=== PATIENT | female | born 1990 | race African-American/Black ===

== ENCOUNTER 2018-11-02 15:12 | Inpatient (IN) | payer OTHER ==
[~2018-11-02] VITALS: Ht 160 cm; Wt 108.0 kg
[2018-11-02] MEDS ORDERED: ONDANSETRON 4 MG INJ IV STA (15:39)
--- NOTE | 2018-11-02 15:44 | ERD ---
ER Documentation Chief Complaint Chief Complaint VOMITING X 1 DAY. HPI This is a 28-year-old female with a history of insulin-dependent diabetes mellitus. The patient is visiting [place] from [place]. She indicated that yesterday evening she changed her insulin pump and appear to be working. When she awoke this morning roughly 10 hours later she states she felt nauseous and had multiple episodes of nonbloody nonbilious emesis. However she denied any abdominal pain. She stated her insulin pump did not appear to be working. She changed the reservoir and it indicated it was blocked. Therefore she came to the emergency department as she was concerned about her glucose being too elevated. She denies a headache. She has no shortness of breath at rest or exertion. ROS All systems reviewed and are negative except as per history of present illness. Medications Home Meds Reported Medications Hydrochlorothiazide* (Hydrochlorothiazide*) 25 Mg Tab, 25 MG PO DAILY, #30 TAB 11/02/18 Lisinopril* (Lisinopril*) 40 Mg Tablet, 40 MG PO DAILY, #30 TAB 11/02/18 Insulin Lispro (Humalog) 100 Unit/1 Ml Cartridge, 0-20 UNIT SQ AC B, EA 11/02/18 Rosuvastatin Calcium* (Crestor*) 20 Mg Tablet, 20 MG PO QHS, #30 TAB 11/02/18 Allergies Allergies: Coded Allergies: No Known Allergy (Unverified , 11/02/18) Physical Exam Vitals Vital Signs Date Temp Pulse Resp B/P (MAP) Pulse Ox O2 O2 Flow FiO2 Time Delivery Rate 11/02/18 116 17 97 21 17:18 11/02/18 120 20 103/58 Room Air 17:00 (73) 11/02/18 98.1 119 18 119/57 99 15:14 (77) Physical Exam Constitutional:Well-developed. Well-nourished. HEENT:Normocephalic. Atraumatic.Pupils were equal round reactive to light. Dry mucous membranes.No tonsillar exudates. Neck: No nuchal rigidity. No lymphadenopathy. No posterior cervical spine tenderness or step-offs. Respiratory: Not using accessory muscles of respiration.Lungs were clear to auscultation bilaterally. No rhonchi. No rales. No wheezing. Cardiovascular: Regular rate regular rhythm.No murmurs. No rubs were appreciated.S1, S2 normal. Distal pulses are palpable 2+ bilaterally. GI: Abdomen was soft. Nontender. Non Distended. No pulsatile abdominal masses or bruits. No rebound. No guarding. Bowel sounds were present and normal. Muscle skeletal: Full range of motion of both the upper and lower extremities bilaterally.Normal muscle tone.No assymetrical calf tenderness or swelling. Skin: No petechia, no purpura. No lesions on the palms or the soles of the feet. No maculopapular rash. NEURO: Patient was alert, awake, orientated x3.No facial droop. Gait observed and normal with no ataxia.Speech had regular rate and rhythm. No focal neurological deficits. Result Diagram: 11/02/18 1542 11/02/18 1542 Results 24 hrs Laboratory Tests Test 11/02/18 15:17 11/02/18 15:42 11/02/18 17:17 11/02/18 18:00 Bedside Glucose > 595 mg/dL > 595 mg/dL White Blood Count 12.7 10^3/ul Red Blood Count 3.37 10^6/ul Hemoglobin 9.2 g/dl Hematocrit 29.7 % Mean Corpuscular 88.1 fl Volume Mean Corpuscular 27.3 pg Hemoglobin Mean Corpuscular 31.0 g/dl Hemoglobin Concen t Red Cell 13.2 % Distribution Width Platelet Count 422 10^3/UL Mean Platelet 10.9 fl Volume Immature 0.600 % Granulocytes % Neutrophils % 92.8 % Lymphocytes % 4.2 % Monocytes % 2.2 % Eosinophils % 0.0 % Basophils % 0.2 % Nucleated Red 0.0 /100WBC Blood Cells % Immature 0.070 10^3/ul Granulocytes # Neutrophils # 11.8 10^3/ul Lymphocytes # 0.5 10^3/ul Monocytes # 0.3 10^3/ul Eosinophils # 0.0 10^3/ul Basophils # 0.0 10^3/ul Nucleated Red 0.0 10^3/ul Blood Cells # Sodium Level 126 mmol/L Potassium Level 6.4 mmol/L Chloride Level 94 mmol/L Carbon Dioxide 12 mmol/L Level Anion Gap 20 Blood Urea 45 mg/dl Nitrogen Creatinine 2.57 mg/dl Est Glomerular 22 mL/min Filtrat Rate mL/min Glucose Level 873 mg/dl Hemoglobin A1c 8.9 % Calcium Level 8.9 mg/dl Phosphorus Level 6.9 mg/dl Magnesium Level 2.2 mg/dl Blood Gas Blood venous Specimen Source Arterial Blood 11/02/2018 3:50:19 Date Drawn PM Arterial Blood OTHER Gas Puncture Site Yohan Test N/A Venous Blood pH 7.234 Venous Blood pCO2 29.2 mmHG (Temp Corrected) Venous Blood pO2 42.6 mmHG (Temp Corrected) Venous Blood HCO3 12.1 mmol/L Venous Blood 68.3 mmHG Oxygen Saturation Venous Blood Base -14.1 mmol/L Excess Venous Blood 8.9 g/dl Total Hemoglobin Venous Blood 67.9 % Oxyhemoglobin Venous Blood 0.3 % Methemoglobin Blood Gas A-a O2 72.2 mmHg Differential Carboxyhemoglobin 0.3 % Blood Gas 37.0 C Temperature Blood Gas ROOM AIR Modality FiO2 21.0 % Blood Gas RBASA R.N. Critical Value Read Back Blood Gas MDA Notified Whom Blood Gas 11/02/2018 3:54:03 Notified Time PM Test 11/02/18 18:03 Bedside Glucose > 595 mg/dL Current Medications Medications Dose Sig/Lewis Start Time Status Last (Trade) Ordered Route PRN Stop Time Admin Dose Reason Admin Sodium 1,000 ml @ ONCE ONCE 11/02/18 DC 11/02/18 Chloride 1,000 mls/hr IV 16:00 11/02/18 15:49 16:59 Ondansetron 4 mg ONCE STAT 11/02/18 DC 11/02/18 HCl (Zofran IV 15:39 11/02/18 15:57 Inj) 15:41 650 mg ONCE ONCE 11/02/18 DC 11/02/18 Acetaminophen PO 16:30 11/02/18 16:59 (Tylenol 16:48 Tab) Potassium 1,000 ml @ Q0M IV 11/02/18 Chloride/Sodi 0 mls/hr 16:33 um Chloride Potassium 1,000 ml @ Q0M IV 11/02/18 Chloride/Dext 0 mls/hr 16:33 dragan/ Sod Cl Potassium 1,000 ml @ Q0M IV 11/02/18 Chloride/Sodi 0 mls/hr 16:33 um Chloride Potassium 1,000 ml @ Q0M IV 11/02/18 Chloride/Dext 0 mls/hr 16:33 dragan/ Sod Cl Sodium 1,000 ml @ Q0M IV 11/02/18 11/02/18 Chloride 0 mls/hr 16:33 17:14 1,000 ml @ Q0M IV 11/02/18 Dextrose/Sodi 0 mls/hr 16:33 um Chloride Insulin 100 ml @ ER DKA 11/02/18 11/02/18 Human 10.8 mls/hr PROTOCOL IV 17:00 17:36 Regular 100 unit/ Sodium Chloride HYPOGLYCEM 11/02/18 Miscellaneous HYPOGLYCEMIA PROTOCOL PRN 17:00 TREATMENT XX Information .HYPOGLYCEMIA (* PROTOCOL Miscellaneous Pharmacy Order) Dextrose 50 ml Q15M PRN 11/02/18 (D50w IV 17:00 Syringe) .DECREASED GLUCOSE Dextrose 25 ml Q15M PRN 11/02/18 (D50w IV 17:00 Syringe) .DECREASED GLUCOSE Sodium 30 gm ONCE STAT 11/02/18 DC Polystyrene PO 16:34 11/02/18 Sulfonate 16:49 (Kayexelate 15 Gm Kit (Powder+Sorbi kishan)) Albuterol 15 mg ONCE STAT 11/02/18 DC 11/02/18 (Proventil INH 16:34 11/02/18 17:15 0.5% (Neb)) 16:49 Sodium 50 ml ONCE STAT 11/02/18 DC 11/02/18 Bicarbonate IV 16:34 11/02/18 16:58 (Na Bicarb 16:49 8.4% Syg) Calcium 1,000 mg ONCE STAT 11/02/18 DC 11/02/18 Chloride IV 16:34 11/02/18 16:59 (Ca Chloride 16:49 10% Syg) Dextrose 50 ml Q15M PRN 11/02/18 UNV (D50w IV For BS 50 18:30 Syringe) or less Dextrose 25 ml Q15M PRN 11/02/18 UNV (D50w IV BS 18:30 Syringe) between 50-70 Diagnostic 1 ea Q1H XX 11/02/18 UNV Test (Pha) 18:30 (Accu-Chek) HYPOGLYCEM 11/02/18 UNV Miscellaneous HYPOGLYCEMIA PROTOCOL PRN 18:30 TREATMENT XX Information Hypoglycemia (* (BS < 70) Miscellaneous Pharmacy Order) Potassium 1,000 ml @ Q0M IV 11/02/18 UNV Chloride/Sodi 0 mls/hr 18:08 um Chloride Potassium 1,000 ml @ Q0M IV 11/02/18 UNV Chloride/Dext 0 mls/hr 18:08 dragan/ Sod Cl Potassium 1,000 ml @ Q0M IV 11/02/18 UNV Chloride/Sodi 0 mls/hr 18:08 um Chloride Potassium 1,000 ml @ Q0M IV 11/02/18 UNV Chloride/Dext 0 mls/hr 18:08 dragan/ Sod Cl Sodium 1,000 ml @ Q0M IV 11/02/18 UNV Chloride 0 mls/hr 18:08 1,000 ml @ Q0M IV 11/02/18 UNV Dextrose/Sodi 0 mls/hr 18:08 um Chloride Insulin 101 ml @ DKA 11/02/18 UNV Human 10.91 mls/ PROTOCOL IV 18:30 Regular 100 hr unit/ Sodium Chloride Please ONCE ONCE 11/02/18 UNV Miscellaneous discontinue XX 18:30 11/02/18 ... 18:31 Information (* Miscellaneous Pharmacy Order) Procedures/MDM This is a very pleasant 20-year-old female presented to the emergency department with a history of insulin-dependent diabetes mellitus and a malfunctioning insulin pump. The patient was immediately placed on a campus monitor continuous pulse oximetry and IV access was established by nursing staff. DKA screening was performed. The patient was given a liter bolus of normal saline as well as Zofran as an antiemetic. Patient was acidotic with an arterial blood gas of 7.194. The patient's blood glucose was elevated with an anion gap and low chloride. Therefore the patient met criteria for diabetic ketoacidosis. The DKA protocol was followed. Patient was started on insulin drip. The patient however was not given lactulose as she was severely hyperkalemic and it was not hemolyzed. Her potassium was 6.4. She had no difficulty with urination states she has no past medical history of kidney disease. Her BUN and creatinine were elevated at 45 and 2.57 respectively. The patient was treated for hyperkalemia given albuterol Ka yexalate and amp of bicarbonate amp of calcium chloride. 1 view chest radiograph on reviewed by myself showed no infiltrates no pneumothorax. The patient will be admitted to the intensive care unit in serious condition with an anticipated stay of greater than 2 midnights. She will be admitted to Dr. Adame. Critical Care: Time: 70 minutes Treatments/Evaluations: Close monitoring and treatment of unstable vital signs, cardiorespiratory, and neurologic status, while maintaining tight balance of fluid, respiratory, and cardiac interventions. Time does not include performing any of the above billable procedures. Departure Diagnosis: Primary Impression: Diabetic ketoacidosis Diabetes mellitus type: type 1 Diabetes mellitus complication detail: without coma Qualified Codes: E10.10 - Type 1 diabetes mellitus with ketoacidosis without coma Additional Impressions: Hyperkalemia Acute renal failure Acute renal failure type: unspecified Qualified Codes: N17.9 - Acute kidney failure, unspecified Condition: Serious PERCY SILVA MD Nov 02, 2018 15:44
[2018-11-02] MEDS ORDERED: SOD CHLORIDE 0.9% 1,000 ML IV ONE (16:00)
[2018-11-02] MEDS ORDERED: ACETAMINOPHEN 325 MG TAB PO ONE (16:30)
[2018-11-02] MEDS ORDERED: DEXTROSE 10 %/0.45 % NACL 1,000 ML IV SCH ×2 (16:33→18:08)
[2018-11-02] MEDS ORDERED: D10/0.45% NACL + KCL 40 MEQ 1,000 ML IV SCH ×2 (16:33→18:08)
[2018-11-02] MEDS ORDERED: NS + KCL 30 MEQ 1,000 ML IV SCH ×2 (16:33→18:08)
[2018-11-02] MEDS ORDERED: SOD CHLORIDE 0.9% 1,000 ML IV SCH ×2 (16:33→18:08)
[2018-11-02] MEDS ORDERED: NS + KCL 40 MEQ 1,000 ML IV SCH ×2 (16:33→18:08)
[2018-11-02] MEDS ORDERED: SODIUM POLYSTYRENE 15 GM KIT (POWDER + SORBITOL) PO STA (16:34)
[2018-11-02] MEDS ORDERED: NA BICARBONATE 8.4% 50 ML SYG IV STA (16:34)
[2018-11-02] MEDS ORDERED: ALBUTEROL 0.5% (NEB) 2.5 MG/0.5 ML AMP INH STA (16:34)
[2018-11-02] MEDS ORDERED: CA CHLORIDE 10% 10 ML SYRINGE IV STA (16:34)
[2018-11-02] MEDS ORDERED: INSULIN REGULAR, HUMAN 100 UNIT in SOD CHLORIDE 0.9% 99 ML IV SCH ×2 (17:00)
[2018-11-02] MEDS ORDERED: DEXTROSE 50% 50 ML SYRINGE IV PRN ×4 (17:00→18:30)
[2018-11-02] MEDS ORDERED: LISI40TA3 PO (18:05)
[2018-11-02] MEDS ORDERED: INSU100C SQ (18:05)
[2018-11-02] MEDS ORDERED: ROSU20TA PO (18:05)
[2018-11-02] MEDS ORDERED: HYDR25TA6 PO (18:06)
[2018-11-02] MEDS ORDERED: D10/0.45% NACL + KCL 30 MEQ 1,000 ML IV SCH (18:08)
--- NOTE | 2018-11-02 18:17 | HP ---
Date/Time of Note Date/Time of Note DATE: 11/02/18 TIME: 18:17 Assessment/Plan VTE Prophylaxis Pharmacological prophylaxis: other Lines/Catheters IV Catheter Type (from [facility]): Saline Lock Assessment/Plan Hospital Course Patient is a female the past medical history significant for insulin-dependent diabetes mellitus as well as hypertension who presents to [facility] with nausea and vomiting. 1 diabetic with an insu tereza pump and she states that she did not bring enough insulin and her reservoir for the short trip here from [place]. Patient is visiting [place] from [place] and is supposed to be going back on Sunday. Patient currently feels nauseated but denies any severe abdominal pain. Patient denies any chest pain, shortness of breath, headache, leg pain. Objective Physical exam General: Patient is laying in bed and answers questions appropriately Mentation: Patient is alert and oriented 4, Head: Normocephalic atraumatic Eyes: EOMI, pupils reactive to light Neck: Supple, nontender, midline Respiratory: Clear to auscultation bilaterally Cardiovascular: regular rate, no obvious murmurs Gastrointestinal: non-tender to palpation, bowel sounds heard. Neurological: Moves all extremities spontaneously Skin: No new skin lesions Assessment and plan Diabetic ketoacidosis -DKA protocol, started by the ED, will continue, ICU -Patient not able to tolerate p.o. intake at this time, keep n.p.o. -Copious fluids with insulin drip per protocol -Endocrinology has been consulted as patient will likely need an insulin plan to go back to [place]. Nausea vomiting -Secondary to above Electrolyte derangement -Secondary to above DKA, Acute kidney injury versus renal failure -Likely secondary to volume depletion, nephrology has been consulted, Dr. Chandler Hypertension -Patient is mildly hypotensive at this time, hold home meds. Disposition -ICU for DKA protocol. Result Diagram: 11/02/18 1542 11/02/18 1542 Results 24hrs Laboratory Tests Test 11/02/18 15:17 11/02/18 15:42 11/02/18 17:17 11/02/18 18:00 Bedside Glucose > 595 *H > 595 *H White Blood Count 12.7 H Red Blood Count 3.37 L Hemoglobin 9.2 L Hematocrit 29.7 L Mean Corpuscular 88.1 Volume Mean Corpuscular 27.3 L Hemoglobin Mean Corpuscular 31.0 L Hemoglobin Concent Red Cell 13.2 Distribution Width Platelet Count 422 H Mean Platelet 10.9 H Volume Immature 0.600 H Granulocytes % Neutrophils % 92.8 H Lymphocytes % 4.2 L Monocytes % 2.2 Eosinophils % 0.0 Basophils % 0.2 Nucleated Red 0.0 Blood Cells % Immature 0.070 H Granulocytes # Neutrophils # 11.8 H Lymphocytes # 0.5 L Monocytes # 0.3 Eosinophils # 0.0 Basophils # 0.0 Nucleated Red 0.0 Blood Cells # Sodium Level 126 L Potassium Level 6.4 *H Chloride Level 94 L Carbon Dioxide 12 L Level Anion Gap 20 H Blood Urea 45 H Nitrogen Creatinine 2.57 H Est Glomerular 22 L Filtrat Rate mL/min Glucose Level 873 *H Hemoglobin A1c 8.9 H Calcium Level 8.9 Phosphorus Level 6.9 H Magnesium Level 2.2 Blood Gas Specimen Blood venous Source Arterial Blood 11/02/2018 3:50:19 Date Drawn PM Arterial Blood Gas OTHER Puncture Site Yohan Test N/A Venous Blood pH 7.234 L Venous Blood pCO2 29.2 L (Temp Corrected) Venous Blood pO2 42.6 H (Temp Corrected) Venous Blood HCO3 12.1 L Venous Blood 68.3 Oxygen Saturation Venous Blood Base -14.1 L Excess Venous Blood Total 8.9 Hemoglobin Venous Blood 67.9 Oxyhemoglobin Venous Blood 0.3 Methemoglobin Blood Gas A-a O2 72.2 Differential Carboxyhemoglobin 0.3 Blood Gas 37.0 Temperature Blood Gas Modality ROOM AIR FiO2 21.0 Blood Gas Critical RBASA R.N. Value Read Back Blood Gas Notified MDA Whom Blood Gas Notified 11/02/2018 3:54:03 Time PM Test 11/02/18 18:03 Bedside Glucose > 595 *H HPI/ROS Admit Date/Time Admit Date/Time PMH/Family/Social Past Medical History Medications Current Medications Potassium Chloride/Sodium Chloride 1,000 ml @ 0 mls/hr Q0M IV ; Start 11/02/18 at 16:33 Potassium Chloride/Dextrose/ Sod Cl 1,000 ml @ 0 mls/hr Q0M IV ; Start 11/02/18 at 16:33 Potassium Chloride/Sodium Chloride 1,000 ml @ 0 mls/hr Q0M IV ; Start 11/02/18 at 16:33 Potassium Chloride/Dextrose/ Sod Cl 1,000 ml @ 0 mls/hr Q0M IV ; Start 11/02/18 at 16:33 Sodium Chloride 1,000 ml @ 0 mls/hr Q0M IV Last administered on 11/02/18at 17:14; Admin Dose 250 MLS/HR; Start 11/02/18 at 16:33 Dextrose/Sodium Chloride 1,000 ml @ 0 mls/hr Q0M IV ; Start 11/02/18 at 16:33 Insulin Human Regular 100 unit/ Sodium Chloride 100 ml @ 10.8 mls/hr ER DKA PROTOCOL IV Last administered on 11/02/18at 17:36; Admin Dose 10.8 MLS/HR; Start 11/02/18 at 17:00 Miscellaneous Information (* Miscellaneous Pharmacy Order) HYPOGLYCEMIA TREATMENT HYPOGLYCEM PROTOCOL PRN XX .HYPOGLYCEMIA PROTOCOL; Start 11/02/18 at 17:00 Dextrose (D50w Syringe) 50 ml Q15M PRN IV .DECREASED GLUCOSE; Start 11/02/18 at 17:00 Dextrose (D50w Syringe) 25 ml Q15M PRN IV .DECREASED GLUCOSE; Start 11/02/18 at 17:00 Dextrose (D50w Syringe) 50 ml Q15M PRN IV For BS 50 or less; Start 11/02/18 at 18:30; Status UNV Dextrose (D50w Syringe) 25 ml Q15M PRN IV BS between 50-70; Start 11/02/18 at 18:30; Status UNV Diagnostic Test (Pha) (Accu-Chek) 1 ea Q1H XX ; Start 11/02/18 at 18:30; Status UNV Miscellaneous Information (* Miscellaneous Pharmacy Order) HYPOGLYCEMIA TREATMENT HYPOGLYCEM PROTOCOL PRN XX Hypoglycemia (BS < 70); Start 11/02/18 at 1 8:30; Status UNV Potassium Chloride/Sodium Chloride 1,000 ml @ 0 mls/hr Q0M IV ; Start 11/02/18 at 18:08; Status UNV Potassium Chloride/Dextrose/ Sod Cl 1,000 ml @ 0 mls/hr Q0M IV ; Start 11/02/18 at 18:08; Status UNV Potassium Chloride/Sodium Chloride 1,000 ml @ 0 mls/hr Q0M IV ; Start 11/02/18 at 18:08; Status UNV Potassium Chloride/Dextrose/ Sod Cl 1,000 ml @ 0 mls/hr Q0M IV ; Start 11/02/18 at 18:08; Status UNV Sodium Chloride 1,000 ml @ 0 mls/hr Q0M IV ; Start 11/02/18 at 18:08; Status UNV Dextrose/Sodium Chloride 1,000 ml @ 0 mls/hr Q0M IV ; Start 11/02/18 at 18:08; Status UNV Insulin Human Regular 100 unit/ Sodium Chloride 101 ml @ 10.91 mls/ hr DKA PROTOCOL IV ; Start 11/02/18 at 18:30; Status UNV Miscellaneous Information (* Miscellaneous Pharmacy Order) Please discontinue ... ONCE ONCE XX ; Start 11/02/18 at 18:30; Stop 11/02/18 at 18:31; Status UNV Coded Allergies: No Known Allergy (Unverified , 11/02/18) Social History Smoking Status: Never smoker Exam/Review of Systems Vital Signs Vitals Vital Signs Date Temp Pulse Resp B/P (MAP) Pulse Ox O2 O2 Flow FiO2 Time Delivery Rate 11/02/18 116 17 97 21 17:18 11/02/18 103/58 Room Air 17:00 (73) 11/02/18 98.1 15:14 NEAL AZAR Nov 02, 2018 18:17
[2018-11-02] MEDS: ACCU-CHEK XX SCH ×6 (18:30→23:30)
[2018-11-02] MEDS ORDERED: SOD CHLORIDE 0.9% 1,000 ML IV STA ×2 (18:42→18:54)
[2018-11-02] MEDS ORDERED: ACETAMINOPHEN 1000MG/100ML IV 100 ML IVPB ONE (22:00)
[2018-11-02] MEDS ORDERED: LORAZEPAM 2 MG INJ ONE (22:23)
[2018-11-02] MEDS ORDERED: LORAZEPAM 2 MG INJ IV ONE (22:30)
--- NOTE | 2018-11-02 22:34 | CONS ---
Assessment/Plan Assessment/Plan Assessment/Plan (Daily) 1. acute kidney injury due to ATN from DKA 2. acute DKA 3. Hyponatremia 4. Severe hyponatremia due to Hypovolemic hyponatremia Plan: Admission to ICU Insulin gtt, IVF NS + KCL at 100 cc/hr Follow Insulin gtt protocol BP stable, Awaiting bed in ICU, currently seen in E will follow up Consultation Date/Type/Reason Admit Date/Time 11/02/18 Date of Consultation: Nov 02, 2018 Type of Consult NEPHROLOGY Reason for Consultation acute kidney injury, DKA Requesting Provider: NEAL AZAR Date/Time of Note DATE: 11/02/18 TIME: 22:33 Hx of Present Illness 28 y/o female the past medical history significant for insulin- dependent diabetes mellitus as well as hypertension who presents to [facility] with nausea and vomiting. 1 diabetic with an insulin pump and she states that she did not bring enough insulin and her reservoir for the short trip here from [place]. Patient is visiting [place] from [place] and is supposed to be going back on Sunday. Patient currently feels nauseated but denies any severe abdominal pain. Patient denies any chest pain, shortness of breath, headache, leg pain.- pt was found to have acute DKA- On admission BUN/Cr 45/2.57, Na 126, K 6.4- Renal has been consulted for acute kidney injury, Hyponatremia, Acute hyperkalemia. Constitutional: no complaints Eyes: no complaints ENT: no complaints Respiratory: no complaints Cardiovascular: no complaints Gastrointestinal: pain, nausea, vomiting Genitourinary: no complaints Musculoskeletal: no complaints Skin: no complaints Neurologic: no complaints Endocrine: no complaints Lymphatic: no complaints Psychological: no complaints Immunologic: no complaints Past Medical History Medical History: diabetes (Insulin dependnant ) Home Meds Reported Medications Hydrochlorothiazide* (Hydrochlorothiazide*) 25 Mg Tab, 25 MG PO DAILY, #30 TAB 11/02/18 Lisinopril* (Lisinopril*) 40 Mg Tablet, 40 MG PO DAILY, #30 TAB 11/02/18 Insulin Lispro (Humalog) 100 Unit/1 Ml Cartridge, 0-20 UNIT SQ AC B, EA 11/02/18 Rosuvastatin Calcium* (Crestor*) 20 Mg Tablet, 20 MG PO QHS, #30 TAB 11/02/18 Medications Current Medications Potassium Chloride/Sodium Chloride 1,000 ml @ 0 mls/hr Q0M IV ; Start 11/02/18 at 16:33 Potassium Chloride/Dextrose/ Sod Cl 1,000 ml @ 0 mls/hr Q0M IV ; Start 11/02/18 at 16:33 Potassium Chloride/Sodium Chloride 1,000 ml @ 0 mls/hr Q0M IV ; Start 11/02/18 at 16:33 Potassium Chloride/Dextrose/ Sod Cl 1,000 ml @ 0 mls/hr Q0M IV ; Start 11/02/18 at 16:33 Sodium Chloride 1,000 ml @ 0 mls/hr Q0M IV Last administered on 11/02/18at 17:14; Admin Dose 250 MLS/HR; Start 11/02/18 at 16:33 Dextrose/Sodium Chloride 1,000 ml @ 0 mls/hr Q0M IV ; Start 11/02/18 at 16:33 Insulin Human Regular 100 unit/ Sodium Chloride 100 ml @ 10.8 mls/hr ER DKA PROTOCOL IV Last administered on 11/02/18at 17:36; Admin Dose 10.8 MLS/HR; Start 11/02/18 at 17:00 Miscellaneous Information (* Miscellaneous Pharmacy Order) HYPOGLYCEMIA TREATMENT HYPOGLYCEM PROTOCOL PRN XX .HYPOGLYCEMIA PROTOCOL; Start 11/02/18 at 17:00 Dextrose (D50w Syringe) 50 ml Q15M PRN IV .DECREASED GLUCOSE; Start 11/02/18 at 17:00 Dextrose (D50w Syringe) 25 ml Q15M PRN IV .DECREASED GLUCOSE; Start 11/02/18 at 17:00 Dextrose (D50w Syringe) 50 ml Q15M PRN IV For BS 50 or less; Start 11/02/18 at 18:30; Status UNV Dextrose (D50w Syringe) 25 ml Q15M PRN IV BS between 50-70; Start 11/02/18 at 18:30; Status UNV Diagnostic Test (Pha) (Accu-Chek) 1 ea Q1H XX ; Start 11/02/18 at 18:30; Status UNV Miscellaneous Information (* Miscellaneous Pharmacy Order) HYPOGLYCEMIA TREATMENT HYPOGLYCEM PROTOCOL PRN XX Hypoglycemia (BS < 70); Start 11/02/18 at 18:30; Status UNV Potassium Chloride/Sodium Chloride 1,000 ml @ 0 mls/hr Q0M IV ; Start 11/02/18 at 18:08; Status UNV Potassium Chloride/Dextrose/ Sod Cl 1,000 ml @ 0 mls/hr Q0M IV ; Start 11/02/18 at 18:08; Status UNV Potassium Chloride/Sodium Chloride 1,000 ml @ 0 mls/hr Q0M IV ; Start 11/02/18 at 18:08; Status UNV Potassium Chloride/Dextrose/ Sod Cl 1,000 ml @ 0 mls/hr Q0M IV ; Start 11/02/18 at 18:08; Status UNV Sodium Chloride 1,000 ml @ 0 mls/hr Q0M IV ; Start 11/02/18 at 18:08; Status UNV Dextrose/Sodium Chloride 1,000 ml @ 0 mls/hr Q0M IV ; Start 11/02/18 at 18:08; Status UNV Insulin Human Regular 100 unit/ Sodium Chloride 101 ml @ 10.91 mls/ hr DKA PROTOCOL IV ; Start 11/02/18 at 18:30; Status UNV Miscellaneous Information (* Miscellaneous Pharmacy Order) Please discontinue ... ONCE ONCE XX ; Start 11/02/18 at 18:30; Stop 11/02/18 at 18:31; Status UNV Lorazepam (Ativan) 1 mg ONCE ONCE IV ; Start 11/02/18 at 22:30; Stop 11/02/18 at 22:31; Status UNV Allergies: Coded Allergies: No Known Allergy (Unverified , 11/02/18) Past Surgical History Past Surgical Hx: no surgical history Family History Significant Family History: no pertinent family hx Social History Alcohol Use: none Smoking Status: Never smoker Drug Use: none Exam/Review of Systems Exam Vitals Vital Signs Date Temp Pulse Resp B/P (MAP) Pulse Ox O2 O2 Flow FiO2 Time Delivery Rate 11/02/18 125 24 97/59 (72) 100 Room Air 22:07 11/02/18 21 17:18 11/02/18 98.1 15:14 Constitutional: alert Psych: no complaints Head: normocephalic Eyes: nl conjunctiva ENMT: nl external ears & nose Neck: supple, non-tender Respiratory: clear to auscultation, normal air movement Cardiovascular: regular rate and rhythm, nl pulses Gastrointestinal: soft, non-tender Musculoskeletal: nl extremities to inspection Extremities: normal pulses Neurological: [employer] II-XII intact, nl mental status, nl speech, nl strength Results Result Diagram: 11/02/18 1542 11/02/18 1924 Results 24hrs Laboratory Tests Test 11/02/18 15:17 11/02/18 15:42 11/02/18 17:17 11/02/18 18:00 Bedside Glucose > 595 *H > 595 *H White Blood 12.7 H Count Red Blood Count 3.37 L Hemoglobin 9.2 L Hematocrit 29.7 L Mean Corpuscular 88.1 Volume Mean Corpuscular 27.3 L Hemoglobin Mean Corpuscular 31.0 L Hemoglobin Aurelia nt Red Cell 13.2 Distribution Width Platelet Count 422 H Mean Platelet 10.9 H Volume Immature 0.600 H Granulocytes % Neutrophils % 92.8 H Lymphocytes % 4.2 L Monocytes % 2.2 Eosinophils % 0.0 Basophils % 0.2 Nucleated Red 0.0 Blood Cells % Immature 0.070 H Granulocytes # Neutrophils # 11.8 H Lymphocytes # 0.5 L Monocytes # 0.3 Eosinophils # 0.0 Basophils # 0.0 Nucleated Red 0.0 Blood Cells # Sodium Level 126 L Potassium Level 6.4 *H Chloride Level 94 L Carbon Dioxide 12 L Level Anion Gap 20 H Blood Urea 45 H Nitrogen Creatinine 2.57 H Est Glomerular 22 L Filtrat Rate mL/min Glucose Level 873 *H Hemoglobin A1c 8.9 H Calcium Level 8.9 Phosphorus Level 6.9 H Magnesium Level 2.2 Blood Gas Blood venous Specimen Source Arterial Blood 11/02/2018 3:50:19 Date Drawn PM Arterial Blood OTHER Gas Puncture Site Yohan Test N/A Venous Blood pH 7.234 L Venous Blood 29.2 L pCO2 (Temp Corrected) Venous Blood pO2 42.6 H (Temp Corrected) Venous Blood 12.1 L HCO3 Venous Blood 68.3 Oxygen Saturation Venous Blood -14.1 L Base Excess Venous Blood 8.9 Total Hemoglobin Venous Blood 67.9 Oxyhemoglobin Venous Blood 0.3 Methemoglobin Blood Gas A-a O2 72.2 Differential Carboxyhemoglobi 0.3 n Blood Gas 37.0 Temperature Blood Gas ROOM AIR Modality FiO2 21.0 Blood Gas RBASA R.N. Critical Value Read Back Blood Gas MDA Notified Whom Blood Gas 11/02/2018 3:54:03 Notified Time PM Test 3/2/19 18:03 11/02/18 18:33 11/02/18 18:59 11/02/18 19:24 Bedside Glucose > 595 *H > 595 *H Blood Gas Blood venous Specimen Source Arterial Blood 11/02/2018 5:43:40 Date Drawn PM Arterial Blood OTHER Gas Puncture Site Yohan Test N/A Venous Blood pH 7.194 *L Venous Blood 28.0 L pCO2 (Temp Corrected) Venous Blood pO2 61.4 H (Temp Corrected) Venous Blood 10.6 L HCO3 Venous Blood 84.2 H Oxygen Saturation Venous Blood -16.2 L Base Excess Venous Blood 9.7 Total Hemoglobin Venous Blood 83.6 Oxyhemoglobin Venous Blood 0.3 Methemoglobin Blood Gas A-a O2 54.8 Differential Carboxyhemoglobi 0.4 n Blood Gas 37.0 Temperature Blood Gas ROOM AIR Modality FiO2 21.0 Blood Gas BERNIE R.NKenny Critical Value Read Back Blood Gas MDA Notified Whom Blood Gas 11/02/2018 5:47:35 Notified Time PM Sodium Level 134 L Potassium Level 4.4 # Chloride Level 105 # Carbon Dioxide 7 #*L Level Anion Gap 22 H Blood Urea 46 H Nitrogen Creatinine 2.72 H Est Glomerular 25 L Filtrat Rate mL/min Glucose Level 713 #*H Calcium Level 8.9 Phosphorus Level 7.4 H Magnesium Level 2.2 Test 11/02/18 20:00 11/02/18 21:02 11/02/18 22:03 Bedside Glucose > 595 *H 566 *H 526 *H Medications Medication Current Medications Potassium Chloride/Sodium Chloride 1,000 ml @ 0 mls/hr Q0M IV ; Start 11/02/18 at 16:33 Potassium Chloride/Dextrose/ Sod Cl 1,000 ml @ 0 mls/hr Q0M IV ; Start 11/02/18 at 16:33 Potassium Chloride/Sodium Chloride 1,000 ml @ 0 mls/hr Q0M IV ; Start 11/02/18 at 16:33 Potassium Chloride/Dextrose/ Sod Cl 1,000 ml @ 0 mls/hr Q0M IV ; Start 11/02/18 at 16:33 Sodium Chloride 1,000 ml @ 0 mls/hr Q0M IV Last administered on 11/02/18at 17:14; Admin Dose 250 MLS/HR; Start 11/02/18 at 16:33 Dextrose/Sodium Chloride 1,000 ml @ 0 mls/hr Q0M IV ; Start 11/02/18 at 16:33 Insulin Human Regular 100 unit/ Sodium Chloride 100 ml @ 10.8 mls/hr ER DKA PROTOCOL IV Last administered on 11/02/18at 17:36; Admin Dose 10.8 MLS/HR; Start 11/02/18 at 17:00 Miscellaneous Information (* Miscellaneous Pharmacy Order) HYPOGLYCEMIA TREATMENT HYPOGLYCEM PROTOCOL PRN XX .HYPOGLYCEMIA PROTOCOL; Start 11/02/18 at 17:00 Dextrose (D50w Syringe) 50 ml Q15M PRN IV .DECREASED GLUCOSE; Start 11/02/18 at 17:00 Dextrose (D50w Syringe) 25 ml Q15M PRN IV .DECREASED GLUCOSE; Start 11/02/18 at 17:00 Dextrose (D50w Syringe) 50 ml Q15M PRN IV For BS 50 or less; Start 11/02/18 at 18:30; Status UNV Dextrose (D50w Syringe) 25 ml Q15M PRN IV BS between 50-70; Start 11/02/18 at 18:30; Status UNV Diagnostic Test (Pha) (Accu-Chek) 1 ea Q1H XX ; Start 11/02/18 at 18:30; Status UNV Miscellaneous Information (* Miscellaneous Pharmacy Order) HYPOGLYCEMIA TREATMENT HYPOGLYCEM PROTOCOL PRN XX Hypoglycemia (BS < 70); Start 11/02/18 at 18:30; Status UNV Potassium Chloride/Sodium Chloride 1,000 ml @ 0 mls/hr Q0M IV ; Start 11/02/18 at 18:08; Status UNV Potassium Chloride/Dextrose/ Sod Cl 1,000 ml @ 0 mls/hr Q0M IV ; Start 11/02/18 at 18:08; Status UNV Potassium Chloride/Sodium Chloride 1,000 ml @ 0 mls/hr Q0M IV ; Start 11/02/18 at 18:08; Status UNV Potassium Chloride/Dextrose/ Sod Cl 1,000 ml @ 0 mls/hr Q0M IV ; Start 11/02/18 at 18:08; Status UNV Sodium Chloride 1,000 ml @ 0 mls/hr Q0M IV ; Start 11/02/18 at 18:08; Status UNV Dextrose/Sodium Chloride 1,000 ml @ 0 mls/hr Q0M IV ; Start 11/02/18 at 18:08; Status UNV Insulin Human Regular 100 unit/ Sodium Chloride 101 ml @ 10.91 mls/ hr DKA PROTOCOL IV ; Start 11/02/18 at 18:30; Status UNV Miscellaneous Information (* Miscellaneous Pharmacy Order) Please discontinue ... ONCE ONCE XX ; Start 11/02/18 at 18:30; Stop 11/02/18 at 18:31; Status UNV Lorazepam (Ativan) 1 mg ONCE ONCE IV ; Start 11/02/18 at 22:30; Stop 11/02/18 at 22:31; Status UNV AYSHA GILLIAM MD Nov 02, 2018 22:34
[2018-11-03] VITALS (17 sets, daily range): BP systolic 102–138; BP diastolic 51–85; PULSE 104–119; RESP 14–27; Ht 160 cm; Wt 108.0 kg
[2018-11-03] MEDS ORDERED: INSULIN REGULAR, HUMAN 100 UNIT in SOD CHLORIDE 0.9% 99 ML IV SCH ×4 (00:15→09:30)
[2018-11-03] MEDS: ACCU-CHEK XX SCH ×11 (00:30→12:30)
[2018-11-03] MEDS: D10/0.45% NACL + KCL 30 MEQ 1,000 ML IV SCH ×2 (04:15→10:11)
[2018-11-03] MEDS ORDERED: DEXTROSE 5% 1,000 ML IV SCH (06:30)
[2018-11-03] MEDS: INSULIN ASPART [NOVOLOG] 3 ML PEN SC SCH ×2 (07:35→11:30)
[2018-11-03] MEDS ORDERED: INSULIN GLARGINE [LANTus] (100 UNITS/ML) SYG SC SCH (08:00)
[2018-11-03] MEDS: CEPASTAT LOZENGE MT PRN ×3 (09:45→13:46)
--- NOTE | 2018-11-03 10:02 | CONS ---
Assessment/Plan Assessment/Plan Assessment/Plan (Daily) 1. acute kidney injury due to prerenal azotemia from DKA 2. acute DKA 3. Hyponatremia 4. Severe hyponatremia due to Hypovolemic hyponatremia 5. 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 She still wants to signs out AMA. she will need insulin on discharge Consultation Date/Type/Reason Admit Date/Time Nov 02, 2018 at 17:54 Initial Consult Date 11/02/18 Type of Consult NEPHROLOGY Requesting Provider: NEAL AZAR Date/Time of Note DATE: 11/03/18 TIME: 10:02 Exam/Review of Systems Exam Vitals Vital Signs Date Temp Pulse Resp B/P (MAP) Pulse Ox O2 O2 Flow FiO2 Time Delivery Rate 11/03/18 111 22 109/68 100 06:00 (82) 11/03/18 98.0 04:00 11/03/18 Room Air 00:08 11/02/18 21 17:18 Intake and Output 11/02/18 11/02/18 11/03/18 1414:59 22:59 06:59 IntakeIntake Total 1000 ml 1705 ml BalanceBalance 1000 ml 1705 ml Exam Constitutional: alert Psych: no complaints Head: normocephalic Eyes: nl conjunctiva ENMT: nl external ears & nose Neck: supple, non-tender Respiratory: clear to auscultation, normal air movement Cardiovascular: regular rate and rhythm, nl pulses Gastrointestinal: soft, non-tender Musculoskeletal: nl extremities to inspection Extremities: normal pulses Neurological: [employer] II-XII intact, nl mental status, nl speech, nl strength Results Result Diagram: 11/02/18 1542 11/03/18 0453 Results 24hrs Laboratory Tests Test 11/02/18 15:17 11/02/18 15:42 11/02/18 17:17 11/02/18 18:00 Bedside Glucose > 595 *H > 595 *H White Blood 12.7 H Count Red Blood Count 3.37 L Hemoglobin 9.2 L Hematocrit 29.7 L Mean Corpuscular 88.1 Volume Mean Corpuscular 27.3 L Hemoglobin Mean Corpuscular 31.0 L Hemoglobin Aurelia nt Red Cell 13.2 Distribution Width Platelet Count 422 H Mean Platelet 10.9 H Volume Immature 0.600 H Granulocytes % Neutrophils % 92.8 H Lymphocytes % 4.2 L Monocytes % 2.2 Eosinophils % 0.0 Basophils % 0.2 Nucleated Red 0.0 Blood Cells % Immature 0.070 H Granulocytes # Neutrophils # 11.8 H Lymphocytes # 0.5 L Monocytes # 0.3 Eosinophils # 0.0 Basophils # 0.0 Nucleated Red 0.0 Blood Cells # Sodium Level 126 L Potassium Level 6.4 *H Chloride Level 94 L Carbon Dioxide 12 L Level Anion Gap 20 H Blood Urea 45 H Nitrogen Creatinine 2.57 H Est Glomerular 22 L Filtrat Rate mL/min Glucose Level 873 *H Hemoglobin A1c 8.9 H Calcium Level 8.9 Phosphorus Level 6.9 H Magnesium Level 2.2 Blood Gas Blood venous Specimen Source Arterial Blood 11/02/2018 3:50:19 Date Drawn PM Arterial Blood OTHER Gas Puncture Site Yohan Test N/A Venous Blood pH 7.234 L Venous Blood 29.2 L pCO2 (Temp Corrected) Venous Blood pO2 42.6 H (Temp Corrected) Venous Blood 12.1 L HCO3 Venous Blood 68.3 Oxygen Saturation Venous Blood -14.1 L Base Excess Venous Blood 8.9 Total Hemoglobin Venous Blood 67.9 Oxyhemoglobin Venous Blood 0.3 Methemoglobin Blood Gas A-a O2 72.2 Differential Carboxyhemoglobi 0.3 n Blood Gas 37.0 Temperature Blood Gas ROOM AIR Modality FiO2 21.0 Blood Gas RBASA R.N. Critical Value Read Back Blood Gas [facility] Notified Whom Blood Gas 11/02/2018 3:54:03 Notified Time PM Test 11/02/18 18:03 11/02/18 18:33 11/02/18 18:59 11/02/18 19:24 Bedside Glucose > 595 *H > 595 *H Blood Gas Blood venous Specimen Source Arterial Blood 11/02/2018 5:43:40 Date Drawn PM Arterial Blood OTHER Gas Puncture Site Yohan Test N/A Venous Blood pH 7.194 *L Venous Blood 28.0 L pCO2 (Temp Corrected) Venous Blood pO2 61.4 H (Temp Corrected) Venous Blood 10.6 L HCO3 Venous Blood 84.2 H Oxygen Saturation Venous Blood -16.2 L Base Excess Venous Blood 9.7 Total Hemoglobin Venous Blood 83.6 Oxyhemoglobin Venous Blood 0.3 Methemoglobin Blood Gas A-a O2 54.8 Differential Carboxyhemoglobi 0.4 n Blood Gas 37.0 Temperature Blood Gas ROOM AIR Modality FiO2 21.0 Blood Gas BERNIE R.NKenny Critical Value Read Back Blood Gas MDA Notified Whom Blood Gas 11/02/2018 5:47:35 Notified Time PM Sodium Level 134 L Potassium Level 4.4 # Chloride Level 105 # Carbon Dioxide 7 #*L Level Anion Gap 22 H Blood Urea 46 H Nitrogen Creatinine 2.72 H Est Glomerular 25 L Filtrat Rate mL/min Glucose Level 713 #*H Calcium Level 8.9 Phosphorus Level 7.4 H Magnesium Level 2.2 Test 11/02/18 20:00 11/02/18 21:02 11/02/18 22:03 11/02/18 22:55 Bedside Glucose > 595 *H 566 *H 526 *H Sodium Level 135 Potassium Level 4.5 Chloride Level 103 Carbon Dioxide 9 *L Level Anion Gap 23 H Blood Urea 45 H Nitrogen Creatinine 3.32 H Est Glomerular 20 L Filtrat Rate mL/min Glucose Level 508 #*H Calcium Level 8.9 Phosphorus Level 7.2 H Magnesium Level 2.0 Test 11/02/18 23:02 11/02/18 23:59 11/03/18 00:58 11/03/18 01:08 Bedside Glucose 492 *H 441 *H 446 *H Sodium Level 136 Potassium Level 4.6 Chloride Level 108 Carbon Dioxide 13 L Level Anion Gap 15 #H Blood Urea 49 H Nitrogen Creatinine 3.06 H Est Glomerular 22 L Filtrat Rate mL/min Glucose Level 406 *H Calcium Level 8.8 Phosphorus Level 4.7 # Magnesium Level 1.9 Test 11/03/18 02:03 11/03/18 03:05 11/03/18 04:07 11/03/18 04:33 Bedside Glucose 397 H 320 H 209 Blood Gas Blood venous Specimen Source Arterial Blood 11/03/2018 5:02:36 Date Drawn AM Arterial Blood VENOUS LINE Gas Puncture Site Yohan Test N/A Venous Blood pH 7.321 L Venous Blood 32.2 L pCO2 (Temp Corrected) Venous Blood pO2 41.4 H (Temp Corrected) Venous Blood 16.3 L HCO3 Venous Blood 75.2 H Oxygen Saturation Venous Blood -8.7 L Base Excess Venous Blood 11.9 Total Hemoglobin Venous Blood 74.7 Oxyhemoglobin Venous Blood 0.3 Methemoglobin Carboxyhemoglobi 0.3 n Blood Gas 37.0 Temperature Blood Gas ROOM AIR Modality FiO2 21.0 Blood Gas RTR Notified Whom Blood Gas 11/03/2018 5:20:36 Notified Time AM Test 11/03/18 04:53 11/03/18 06:14 11/03/18 06:46 11/03/18 08:42 Sodium Level 138 Potassium Level 4.4 Chloride Level 109 Carbon Dioxide 18 L Level Anion Gap 11 Blood Urea 48 H Nitrogen Creatinine 2.85 H Est Glomerular 24 L Filtrat Rate mL/min Glucose Level 179 # Bedside Glucose 212 170 137 99 Calcium Level 8.9 Phosphorus Level 3.2 Magnesium Level 1.9 Medications Medication Current Medications Potassium Chloride/Sodium Chloride 1,000 ml @ 0 mls/hr Q0M IV ; Start 11/02/18 at 16:33 Potassium Chloride/Dextrose/ Sod Cl 1,000 ml @ 0 mls/hr Q0M IV ; Start 11/02/18 at 16:33 Potassium Chloride/Sodium Chloride 1,000 ml @ 0 mls/hr Q0M IV Last administered on 11/03/18at 04:48; Admin Dose 100 MLS/HR; Start 11/02/18 at 16:33 Potassium Chloride/Dextrose/ Sod Cl 1,000 ml @ 0 mls/hr Q0M IV Last administered on 11/03/18at 04:15; Admin Dose 100 MLS/HR; Start 11/02/18 at 16:33 Sodium Chloride 1,000 ml @ 0 mls/hr Q0M IV Last administered on 11/02/18at 17:14; Admin Dose 250 MLS/HR; Start 11/02/18 at 16:33 Dextrose/Sodium Chloride 1,000 ml @ 0 mls/hr Q0M IV ; Start 11/02/18 at 16:33 Miscellaneous Information (* Miscellaneous Pharmacy Order) HYPOGLYCEMIA TREATMENT HYPOGLYCEM PROTOCOL PRN XX .HYPOGLYCEMIA PROTOCOL; Start 11/02/18 at 17:00 Dextrose (D50w Syringe) 50 ml Q15M PRN IV .DECREASED GLUCOSE; Start 11/02/18 at 17:00 Dextrose (D50w Syringe) 25 ml Q15M PRN IV .DECREASED GLUCOSE; Start 11/02/18 at 17:00 Dextrose (D50w Syringe) 50 ml Q15M PRN IV For BS 50 or less; Start 11/02/18 at 18:30 Dextrose (D50w Syringe) 25 ml Q15M PRN IV BS between 50-70; Start 11/02/18 at 18:30 Diagnostic Test (Pha) (Accu-Chek) 1 ea Q1H XX Last administered on 11/03/18at 09:08; Admin Dose 1 EA; Start 11/02/18 at 18:30 Miscellaneous Information (* Miscellaneous Pharmacy Order) HYPOGLYCEMIA TREATMENT HYPOGLYCEM PROTOCOL PRN XX Hypoglycemia (BS < 70); Start 11/02/18 at 18:30 Potassium Chloride/Sodium Chloride 1,000 ml @ 0 mls/hr Q0M IV ; Start 11/02/18 at 18:08 Potassium Chloride/Dextrose/ Sod Cl 1,000 ml @ 0 mls/hr Q0M IV ; Start 11/02/18 at 18:08 Potassium Chloride/Sodium Chloride 1,000 ml @ 0 mls/hr Q0M IV ; Start 11/02/18 at 18:08 Potassium Chloride/Dextrose/ Sod Cl 1,000 ml @ 0 mls/hr Q0M IV ; Start 11/02/18 at 18:08 Sodium Chloride 1,000 ml @ 0 mls/hr Q0M IV ; Start 11/02/18 at 18:08 Dextrose/Sodium Chloride 1,000 ml @ 0 mls/hr Q0M IV ; Start 11/02/18 at 18:08 Dextrose 1,000 ml @ 100 mls/hr Q10H IV ; Start 11/03/18 at 06:30 Insulin Glargine (Lantus) 21 units DAILY@0800 SC Last administered on 11/03/18at 08:50; Admin Dose 21 UNITS; Start 11/03/18 at 08:00 Insulin Aspart (Novolog Insulin Pen) NOVOLOG *MODERATE* ALGORITHM WITH MEALS BEDTIME SC ; Start 11/03/18 at 07:35 Phenol (Cepastat Lozenge) 1 lozenge Q1H PRN MT SORE THROAT Last administered on 11/03/18at 09:45; Admin Dose 1 LOZENGE; Start 11/03/18 at 09:00 Insulin Human Regular 100 unit/ Sodium Chloride 100 ml @ 10.8 mls/hr DKA PROTOCOL IV ; Start 11/03/18 at 09:30; Stop 11/03/18 at 12:01 AYSHA GILLIAM MD Nov 03, 2018 10:02
--- NOTE | 2018-11-03 10:50 | CONS ---
Assessment/Plan Assessment/Plan Problems: (1) Diabetic ketoacidosis Status: Acute Comment: Resolving. Insulin drip protocol and care of primary team has been effective Qualifiers: Qualified Codes: E10.10 - Type 1 diabetes mellitus with ketoacidosis without coma (2) Type 1 diabetes mellitus with diabetic nephropathy Status: Chronic Comment: Pt. normally takes 18 units per day of basal insulin. Here rec'ed 21 units of lantus this am. This should be effective as injectable doses are usually about 20% higher than pump doses. Would given Novolog 8 units qac plus correction. Will provide her w/ a basal insulin and bolus insulin pen plus needles to last her through her trip home. Discharge will be the decision of the primary team, especially given her renal function. Will defer to them. Will monitor BG today and titrate proposed insulin doses as we go. (3) Hyperlipidemia Status: Chronic Comment: Cont. statin (4) Essential (primary) hypertension Status: Chronic Comment: Cont. BP control. Normally on HCTZ and ANGELES inhibitor. Will defer to nephrology to decide if this is optimal treatment for her kidneys at this point. Consultation Date/Type/Reason Admit Date/Time Nov 02, 2018 at 17:54 Date of Consultation: Nov 03, 2018 Type of Consult Endocrinology Reason for Consultation DKA Requesting Provider: NEAL AZAR Date/Time of Note DATE: 11/03/18 TIME: 10:40 Hx of Present Illness 28 y/o AA F w/ h/o T1DM, HTN, hyperlipidemia, CKD, Chaffee disease, visiting from her home in [place], [place] just for the weekend. In [facility] until 2 days ago when she saw an alert on her insulin pump that she had a blockage. Changed that but the next morning had another blockage. When she changed it again she was on her last reservoir. Developed N/V, weakness. By midday was so sick had to come to ER. In ER was in suspected DKA w/ glucose 873 mg/dL, Na 126, K 6.4, BUN 45, Cr 2.6, CO2 12, open AG. Neither urine nor blood ketones were checked but pt. was placed on DKA protocol and has improved. Kidney fxn still impaired but all other numbers normalizing. Constitutional: improved, other (weakness, fatigue) Eyes: no complaints ENT: no complaints Respiratory: no complaints Cardiovascular: no complaints Gastrointestinal: pain, nausea, vomiting Genitourinary: no complaints Musculoskeletal: no complaints Neurologic: no complaints Past Medical History Medical History: diabetes (Insulin dependnant ), high cholesterol, hypertension, renal disease, other (Valerie disease) Home Meds Reported Medications Hydrochlorothiazide* (Hydrochlorothiazide*) 25 Mg Tab, 25 MG PO DAILY, #30 TAB 11/02/18 Lisinopril* (Lisinopril*) 40 Mg Tablet, 40 MG PO DAILY, #30 TAB 11/02/18 Insulin Lispro (Humalog) 100 Unit/1 Ml Cartridge, 0-20 UNIT SQ AC B, EA 11/02/18 Rosuvastatin Calcium* (Crestor*) 20 Mg Tablet, 20 MG PO QHS, #30 TAB 11/02/18 Medications Current Medications Potassium Chloride/Sodium Chloride 1,000 ml @ 0 mls/hr Q0M IV ; Start 11/02/18 at 16:33 Potassium Chloride/Dextrose/ Sod Cl 1,000 ml @ 0 mls/hr Q0M IV ; Start 11/02/18 at 16:33 Potassium Chloride/Sodium Chloride 1,000 ml @ 0 mls/hr Q0M IV Last administered on 11/03/18at 04:48; Admin Dose 100 MLS/HR; Start 11/02/18 at 16:33 Potassium Chloride/Dextrose/ Sod Cl 1,000 ml @ 0 mls/hr Q0M IV Last administered on 11/03/18at 10:11; Admin Dose 250 MLS/HR; Start 11/02/18 at 16:33 Sodium Chloride 1,000 ml @ 0 mls/hr Q0M IV Last administered on 11/02/18at 17:14; Admin Dose 250 MLS/HR; Start 11/02/18 at 16:33 Dextrose/Sodium Chloride 1,000 ml @ 0 mls/hr Q0M IV ; Start 11/02/18 at 16:33 Miscellaneous Information (* Miscellaneous Pharmacy Order) HYPOGLYCEMIA TREATMENT HYPOGLYCEM PROTOCOL PRN XX .HYPOGLYCEMIA PROTOCOL; Start 11/02/18 at 17:00 Dextrose (D50w Syringe) 50 ml Q15M PRN IV .DECREASED GLUCOSE; Start 11/02/18 at 17:00 Dextrose (D50w Syringe) 25 ml Q15M PRN IV .DECREASED GLUCOSE; Start 11/02/18 at 17:00 Dextrose (D50w Syringe) 50 ml Q15M PRN IV For BS 50 or less; Start 11/02/18 at 18:30 Dextrose (D50w Syringe) 25 ml Q15M PRN IV BS between 50-70; Start 11/02/18 at 18:30 Diagnostic Test (Pha) (Accu-Chek) 1 ea Q1H XX Last administered on 11/03/18at 10:17; Admin Dose 1 EA; Start 11/02/18 at 18:30 Miscellaneous Information (* Miscellaneous Pharmacy Order) HYPOGLYCEMIA TREATMENT HYPOGLYCEM PROTOCOL PRN XX Hypoglycemia (BS < 70); Start 11/02/18 at 18:30 Potassium Chloride/Sodium Chloride 1,000 ml @ 0 mls/hr Q0M IV ; Start 11/02/18 at 18:08 Potassium Chloride/Dextrose/ Sod Cl 1,000 ml @ 0 mls/hr Q0M IV ; Start 11/02/18 at 18:08 Potassium Chloride/Sodium Chloride 1,000 ml @ 0 mls/hr Q0M IV ; Start 11/02/18 at 18:08 Potassium Chloride/Dextrose/ Sod Cl 1,000 ml @ 0 mls/hr Q0M IV ; Start 11/02/18 at 18:08 Sodium Chloride 1,000 ml @ 0 mls/hr Q0M IV ; Start 11/02/18 at 18:08 Dextrose/Sodium Chloride 1,000 ml @ 0 mls/hr Q0M IV ; Start 11/02/18 at 18:08 Dextrose 1,000 ml @ 100 mls/hr Q10H IV ; Start 11/03/18 at 06:30 Insulin Glargine (Lantus) 21 units DAILY@0800 SC Last administered on 11/03/18at 08:50; Admin Dose 21 UNITS; Start 11/03/18 at 08:00 Insulin Aspart (Novolog Insulin Pen) NOVOLOG *MODERATE* ALGORITHM WITH MEALS BEDTIME SC ; Start 11/03/18 at 07:35 Phenol (Cepastat Lozenge) 1 lozenge Q1H PRN MT SORE THROAT Last administered on 11/03/18at 09:45; Admin Dose 1 LOZENGE; Start 11/03/18 at 09:00 Insulin Human Regular 100 unit/ Sodium Chloride 100 ml @ 10.8 mls/hr DKA PROTOCOL IV ; Start 11/03/18 at 09:30; Stop 11/03/18 at 12:01 Allergies: Coded Allergies: No Known Allergy (Unverified , 11/02/18) Past Surgical History Past Surgical Hx: other (L knee surgery) Family History Significant Family History: asthma (mother and sibs), diabetes (in 3 cousins), other (IBS in mother) Social History b. [place], [place], just here for the weekend, works as HEALTH AND SAFETY MANAGER, single, has BF, no children Alcohol Use: occasionally Smoking Status: Former smoker Drug Use: marijuana (occasional) Exam/Review of Systems Exam Vitals VS - Last 72 Hours, by Label Date Temp Pulse Resp B/P (MAP) Pulse Ox O2 O2 Flow FiO2 Time Delivery Rate 11/03/18 111 22 109/68 100 06:00 (82) 11/03/18 113 26 108/51 100 05:00 (70) 11/03/18 113 26 108/51 100 05:00 (70) 11/03/18 98.0 116 23 132/84 100 04:00 (100) 11/03/18 119 04:00 11/03/18 112 25 109/73 100 03:00 (85) 11/03/18 118 24 116/66 100 02:00 (83) 11/03/18 116 21 110/63 100 01:15 (79) 11/03/18 117 01:03 11/03/18 117 26 105/59 100 01:00 (74) 11/03/18 117 26 105/59 100 01:00 (74) 11/03/18 98.4 102/54 00:45 (70) 11/03/18 117 24 111/65 100 Room Air 00:08 (80) 11/02/18 117 27 102/56 100 Room Air 23:56 (71) 11/02/18 120 25 96/56 (69) 100 Room Air 23:27 11/02/18 125 24 97/59 (72) 100 Room Air 22:07 11/02/18 126 26 103/44 100 Room Air 21:32 (63) 11/02/18 127 24 91/56 (68) 100 Room Air 21:14 11/02/18 110 18 99/44 (62) 100 Room Air 20:01 11/02/18 103 23 91/36 (54) 100 Room Air 19:16 11/02/18 116 25 84/54 (64) 100 Room Air 18:34 11/02/18 126 22 84/54 (64) Room Air 18:00 11/02/18 116 17 97 21 17:18 11/02/18 120 20 103/58 Room Air 17:00 (73) 11/02/18 98.1 119 18 119/57 99 15:14 (77) Vital Signs Date Temp Pulse Resp B/P (MAP) Pulse Ox O2 O2 Flow FiO2 Time Delivery Rate 11/03/18 111 22 109/68 100 06:00 (82) 11/03/18 98.0 04:00 11/03/18 Room Air 00:08 11/02/18 21 17:18 Intake and Output 11/02/18 11/02/18 11/03/18 1515:00 23:00 07:00 IntakeIntake Total 1000 ml 1705 ml BalanceBalance 1000 ml 1705 ml Constitutional: alert, oriented, obese Psych: no complaints, nl mood/affect Eyes: nl conjunctiva, EOMI, nl lids, nl sclera, PERRL ENMT: nl external ears & nose, mucosa pink and moist Neck: supple, non-tender; No bruits, No masses, No thyromegaly Respiratory: clear to auscultation, normal air movement Cardiovascular: regular rate and rhythm, nl pulses; No edema, No murmurs/extra sounds, No rub Gastrointestinal: soft, nl liver, spleen, non-tender, bowel sounds; No mass, No rebound or guarding Musculoskeletal: nl extremities to inspection Extremities: normal pulses; No cyanosis, No clubbing, No edema Neurological: EDITORIAL DIRECTOR II-XII intact, nl mental status, nl speech, nl strength Additional Comments Bedside Glucose - 72 Hours Test 11/02/18 15:17 11/02/18 17:17 11/02/18 18:03 11/02/18 18:59 Bedside > 595 > 595 > 595 > 595 Glucose mg/dL (70-220) mg/dL (70-220) mg/dL (70-220) mg/dL (70-220) *H *H *H *H Test 11/02/18 20:00 11/02/18 21:02 11/02/18 22:03 11/02/18 23:02 Bedside > 595 566 526 492 Glucose mg/dL (70-220) mg/dL (70-220) mg/dL (70-220) mg/dL (70-220) *H *H *H *H Test 11/02/18 23:59 11/03/18 00:58 11/03/18 02:03 11/03/18 03:05 Bedside 441 446 397 320 Glucose mg/dL (70-220) mg/dL (70-220) mg/dL (70-220) mg/dL (70-220) *H *H H H Test 11/03/18 04:07 11/03/18 04:53 11/03/18 06:14 11/03/18 06:46 Bedside 209 212 170 137 Glucose mg/dL (70-220) mg/dL (70-220) mg/dL (70-220) mg/dL (70-220) Test 11/03/18 08:42 11/03/18 10:13 Bedside 99 110 Glucose mg/dL (70-220) mg/dL (70-220) Results Result Diagram: 11/02/18 1542 11/03/18 0453 Results 24hrs Laboratory Tests Test 11/02/18 15:17 11/02/18 15:42 11/02/18 17:17 11/02/18 18:00 Bedside Glucose > 595 *H > 595 *H White Blood 12.7 H Count Red Blood Count 3.37 L Hemoglobin 9.2 L Hematocrit 29.7 L Mean Corpuscular 88.1 Volume Mean Corpuscular 27.3 L Hemoglobin Mean Corpuscular 31.0 L Hemoglobin Aurelia nt Red Cell 13.2 Distribution Width Platelet Count 422 H Mean Platelet 10.9 H Volume Immature 0.600 H Granulocytes % Neutrophils % 92.8 H Lymphocytes % 4.2 L Monocytes % 2.2 Eosinophils % 0.0 Basophils % 0.2 Nucleated Red 0.0 Blood Cells % Immature 0.070 H Granulocytes # Neutrophils # 11.8 H Lymphocytes # 0.5 L Monocytes # 0.3 Eosinophils # 0.0 Basophils # 0.0 Nucleated Red 0.0 Blood Cells # Sodium Level 126 L Potassium Level 6.4 *H Chloride Level 94 L Carbon Dioxide 12 L Level Anion Gap 20 H Blood Urea 45 H Nitrogen Creatinine 2.57 H Est Glomerular 22 L Filtrat Rate mL/min Glucose Level 873 *H Hemoglobin A1c 8.9 H Calcium Level 8.9 Phosphorus Level 6.9 H Magnesium Level 2.2 Blood Gas Blood venous Specimen Source Arterial Blood 11/02/2018 3:50:19 Date Drawn PM Arterial Blood OTHER Gas Puncture Site Yohan Test N/A Venous Blood pH 7.234 L Venous Blood 29.2 L pCO2 (Temp Corrected) Venous Blood pO2 42.6 H (Temp Corrected) Venous Blood 12.1 L HCO3 Venous Blood 68.3 Oxygen Saturation Venous Blood -14.1 L Base Excess Venous Blood 8.9 Total Hemoglobin Venous Blood 67.9 Oxyhemoglobin Venous Blood 0.3 Methemoglobin Blood Gas A-a O2 72.2 Differential Carboxyhemoglobi 0.3 n Blood Gas 37.0 Temperature Blood Gas ROOM AIR Modality FiO2 21.0 Blood Gas RBASA R.N. Critical Value Read Back Blood Gas MDA Notified Whom Blood Gas 11/02/2018 3:54:03 Notified Time PM Test 11/02/18 18:03 11/02/18 18:33 11/02/18 18:59 11/02/18 19:24 Bedside Glucose > 595 *H > 595 *H Blood Gas Blood venous Specimen Source Arterial Blood 11/02/2018 5:43:40 Date Drawn PM Arterial Blood OTHER Gas Puncture Site Yohan Test N/A Venous Blood pH 7.194 *L Venous Blood 28.0 L pCO2 (Temp Corrected) Venous Blood pO2 61.4 H (Temp Corrected) Venous Blood 10.6 L HCO3 Venous Blood 84.2 H Oxygen Saturation Venous Blood -16.2 L Base Excess Venous Blood 9.7 Total Hemoglobin Venous Blood 83.6 Oxyhemoglobin Venous Blood 0.3 Methemoglobin Blood Gas A-a O2 54.8 Differential Carboxyhemoglobi 0.4 n Blood Gas 37.0 Temperature Blood Gas ROOM AIR Modality FiO2 21.0 Blood Gas OFERUFINO R.N. Critical Value Read Back Blood Gas MDA Notified Whom Blood Gas 11/02/2018 5:47:35 Notified Time PM Sodium Level 134 L Potassium Level 4.4 # Chloride Level 105 # Carbon Dioxide 7 #*L Level Anion Gap 22 H Blood Urea 46 H Nitrogen Creatinine 2.72 H Est Glomerular 25 L Filtrat Rate mL/min Glucose Level 713 #*H Calcium Level 8.9 Phosphorus Level 7.4 H Magnesium Level 2.2 Test 11/02/18 20:00 11/02/18 21:02 11/02/18 22:03 11/02/18 22:55 Bedside Glucose > 595 *H 566 *H 526 *H Sodium Level 135 Potassium Level 4.5 Chloride Level 103 Carbon Dioxide 9 *L Level Anion Gap 23 H Blood Urea 45 H Nitrogen Creatinine 3.32 H Est Glomerular 20 L Filtrat Rate mL/min Glucose Level 508 #*H Calcium Level 8.9 Phosphorus Level 7.2 H Magnesium Level 2.0 Test 11/02/18 23:02 11/02/18 23:59 11/03/18 00:58 11/03/18 01:08 Bedside Glucose 492 *H 441 *H 446 *H Sodium Level 136 Potassium Level 4.6 Chloride Level 108 Carbon Dioxide 13 L Level Anion Gap 15 #H Blood Urea 49 H Nitrogen Creatinine 3.06 H Est Glomerular 22 L Filtrat Rate mL/min Glucose Level 406 *H Calcium Level 8.8 Phosphorus Level 4.7 # Magnesium Level 1.9 Test 11/03/18 02:03 11/03/18 03:05 11/03/18 04:07 11/03/18 04:33 Bedside Glucose 397 H 320 H 209 Blood Gas Blood venous Specimen Source Arterial Blood 11/03/2018 5:02:36 Date Drawn AM Arterial Blood VENOUS LINE Gas Puncture Site Yohan Test N/A Venous Blood pH 7.321 L Venous Blood 32.2 L pCO2 (Temp Corrected) Venous Blood pO2 41.4 H (Temp Corrected) Venous Blood 16.3 L HCO3 Venous Blood 75.2 H Oxygen Saturation Venous Blood -8.7 L Base Excess Venous Blood 11.9 Total Hemoglobin Venous Blood 74.7 Oxyhemoglobin Venous Blood 0.3 Methemoglobin Carboxyhemoglobi 0.3 n Blood Gas 37.0 Temperature Blood Gas ROOM AIR Modality FiO2 21.0 Blood Gas RTR Notified Whom Blood Gas 11/03/2018 5:20:36 Notified Time AM Test 11/03/18 04:53 11/03/18 06:14 11/03/18 06:46 11/03/18 08:42 Sodium Level 138 Potassium Level 4.4 Chloride Level 109 Carbon Dioxide 18 L Level Anion Gap 11 Blood Urea 48 H Nitrogen Creatinine 2.85 H Est Glomerular 24 L Filtrat Rate mL/min Glucose Level 179 # Bedside Glucose 212 170 137 99 Calcium Level 8.9 Phosphorus Level 3.2 Magnesium Level 1.9 Test 11/03/18 10:13 Bedside Glucose 110 Medications Medication Current Medications Potassium Chloride/Sodium Chloride 1,000 ml @ 0 mls/hr Q0M IV ; Start 11/02/18 at 16:33 Potassium Chloride/Dextrose/ Sod Cl 1,000 ml @ 0 mls/hr Q0M IV ; Start 11/02/18 at 16:33 Potassium Chloride/Sodium Chloride 1,000 ml @ 0 mls/hr Q0M IV Last administered on 11/03/18at 04:48; Admin Dose 100 MLS/HR; Start 11/02/18 at 16:33 Potassium Chloride/Dextrose/ Sod Cl 1,000 ml @ 0 mls/hr Q0M IV Last administered on 11/03/18at 10:11; Admin Dose 250 MLS/HR; Start 11/02/18 at 16:33 Sodium Chloride 1,000 ml @ 0 mls/hr Q0M IV Last administered on 11/02/18at 17:14; Admin Dose 250 MLS/HR; Start 11/02/18 at 16:33 Dextrose/Sodium Chloride 1,000 ml @ 0 mls/hr Q0M IV ; Start 11/02/18 at 16:33 Miscellaneous Information (* Miscellaneous Pharmacy Order) HYPOGLYCEMIA TREATMENT HYPOGLYCEM PROTOCOL PRN XX .HYPOGLYCEMIA PROTOCOL; Start 11/02/18 at 17:00 Dextrose (D50w Syringe) 50 ml Q15M PRN IV .DECREASED GLUCOSE; Start 11/02/18 at 17:00 Dextrose (D50w Syringe) 25 ml Q15M PRN IV .DECREASED GLUCOSE; Start 11/02/18 at 17:00 Dextrose (D50w Syringe) 50 ml Q15M PRN IV For BS 50 or less; Start 11/02/18 at 18:30 Dextrose (D50w Syringe) 25 ml Q15M PRN IV BS between 50-70; Start 11/02/18 at 18:30 Diagnostic Test (Pha) (Accu-Chek) 1 ea Q1H XX Last administered on 11/03/18at 10:17; Admin Dose 1 EA; Start 11/02/18 at 18:30 Miscellaneous Information (* Miscellaneous Pharmacy Order) HYPOGLYCEMIA TREATMENT HYPOGLYCEM PROTOCOL PRN XX Hypoglycemia (BS < 70); Start 11/02/18 at 18:30 Potassium Chloride/Sodium Chloride 1,000 ml @ 0 mls/hr Q0M IV ; Start 11/02/18 at 18:08 Potassium Chloride/Dextrose/ Sod Cl 1,000 ml @ 0 mls/hr Q0M IV ; Start 11/02/18 at 18:08 Potassium Chloride/Sodium Chloride 1,000 ml @ 0 mls/hr Q0M IV ; Start 11/02/18 at 18:08 Potassium Chloride/Dextrose/ Sod Cl 1,000 ml @ 0 mls/hr Q0M IV ; Start 11/02/18 at 18:08 Sodium Chloride 1,000 ml @ 0 mls/hr Q0M IV ; Start 11/02/18 at 18:08 Dextrose/Sodium Chloride 1,000 ml @ 0 mls/hr Q0M IV ; Start 11/02/18 at 18:08 Dextrose 1,000 ml @ 100 mls/hr Q10H IV ; Start 11/03/18 at 06:30 Insulin Glargine (Lantus) 21 units DAILY@0800 SC Last administered on 11/03/18at 08:50; Admin Dose 21 UNITS; Start 11/03/18 at 08:00 Insulin Aspart (Novolog Insulin Pen) NOVOLOG *MODERATE* ALGORITHM WITH MEALS BEDTIME SC ; Start 11/03/18 at 07:35 Phenol (Cepastat Lozenge) 1 lozenge Q1H PRN MT SORE THROAT Last administered on 11/03/18at 09:45; Admin Dose 1 LOZENGE; Start 11/03/18 at 09:00 Insulin Human Regular 100 unit/ Sodium Chloride 100 ml @ 10.8 mls/hr DKA PROTOCOL IV ; Start 11/03/18 at 09:30; Stop 11/03/18 at 12:01 ESDRAS NEVES MD Nov 03, 2018 10:50
[2018-11-03] MEDS ORDERED: INSULIN ASPART [NOVOLOG] 3 ML PEN SC SCH (11:30)
--- NOTE | 2018-11-03 12:48 | PN ---
Date/Time of Note Date/Time of Note DATE: 11/03/18 TIME: 12:47 Objective Vitals Vital Signs Date Temp Pulse Resp B/P (MAP) Pulse Ox O2 O2 Flow FiO2 Time Delivery Rate 11/03/18 106 12:00 11/03/18 24 136/68 100 Room Air 11:00 (90) 11/03/18 98.6 08:00 11/02/18 21 17:18 Intake and Output 11/02/18 11/02/18 11/03/18 1515:00 23:00 07:00 IntakeIntake Total 1000 ml 1965.8 ml BalanceBalance 1000 ml 1965.8 ml Results Result Diagram: 11/02/18 1542 11/03/18 0453 Medications Medications Current Medications Potassium Chloride/Sodium Chloride 1,000 ml @ 0 mls/hr Q0M IV ; Start 11/02/18 at 16:33 Potassium Chloride/Dextrose/ Sod Cl 1,000 ml @ 0 mls/hr Q0M IV ; Start 11/02/18 at 16:33 Potassium Chloride/Sodium Chloride 1,000 ml @ 0 mls/hr Q0M IV Last administered on 11/03/18at 04:48; Admin Dose 100 MLS/HR; Start 11/02/18 at 16:33 Potassium Chloride/Dextrose/ Sod Cl 1,000 ml @ 0 mls/hr Q0M IV Last administered on 11/03/18at 10:11; Admin Dose 250 MLS/HR; Start 11/02/18 at 16:33 Sodium Chloride 1,000 ml @ 0 mls/hr Q0M IV Last administered on 11/02/18at 17:14; Admin Dose 250 MLS/HR; Start 11/02/18 at 16:33 Dextrose/Sodium Chloride 1,000 ml @ 0 mls/hr Q0M IV ; Start 11/02/18 at 16:33 Miscellaneous Information (* Miscellaneous Pharmacy Order) HYPOGLYCEMIA TREATMENT HYPOGLYCEM PROTOCOL PRN XX .HYPOGLYCEMIA PROTOCOL; Start 11/02/18 at 17:00 Dextrose (D50w Syringe) 50 ml Q15M PRN IV .DECREASED GLUCOSE; Start 11/02/18 at 17:00 Dextrose (D50w Syringe) 25 ml Q15M PRN IV .DECREASED GLUCOSE; Start 11/02/18 at 17:00 Dextrose (D50w Syringe) 50 ml Q15M PRN IV For BS 50 or less; Start 11/02/18 at 18:30 Dextrose (D50w Syringe) 25 ml Q15M PRN IV BS between 50-70; Start 11/02/18 at 18:30 Diagnostic Test (Pha) (Accu-Chek) 1 ea Q1H XX Last administered on 11/03/18at 12:16; Admin Dose 1 EA; Start 11/02/18 at 18:30 Miscellaneous Information (* Miscellaneous Pharmacy Order) HYPOGLYCEMIA TREATMENT HYPOGLYCEM PROTOCOL PRN XX Hypoglycemia (BS < 70); Start 11/02/18 at 18:30 Potassium Chloride/Sodium Chloride 1,000 ml @ 0 mls/hr Q0M IV ; Start 11/02/18 at 18:08 Potassium Chloride/Dextrose/ Sod Cl 1,000 ml @ 0 mls/hr Q0M IV ; Start 11/02/18 at 18:08 Potassium Chloride/Sodium Chloride 1,000 ml @ 0 mls/hr Q0M IV ; Start 11/02/18 at 18:08 Potassium Chloride/Dextrose/ Sod Cl 1,000 ml @ 0 mls/hr Q0M IV ; Start 11/02/18 at 18:08 Sodium Chloride 1,000 ml @ 0 mls/hr Q0M IV ; Start 11/02/18 at 18:08 Dextrose/Sodium Chloride 1,000 ml @ 0 mls/hr Q0M IV ; Start 11/02/18 at 18:08 Dextrose 1,000 ml @ 100 mls/hr Q10H IV ; Start 11/03/18 at 06:30 Insulin Glargine (Lantus) 21 units DAILY@0800 SC Last administered on 11/03/18at 08:50; Admin Dose 21 UNITS; Start 11/03/18 at 08:00 Insulin Aspart (Novolog Insulin Pen) NOVOLOG *MODERATE* ALGORITHM WITH MEALS BEDTIME SC ; Start 11/03/18 at 07:35 Phenol (Cepastat Lozenge) 1 lozenge Q1H PRN MT SORE THROAT Last administered on 11/03/18at 11:16; Admin Dose 1 LOZENGE; Start 11/03/18 at 09:00 Insulin Aspart (Novolog Insulin Pen) 8 unit WITH MEALS SC Last administered on 11/03/18at 12:15; Admin Dose 8 UNIT; Start 11/03/18 at 11:30 Lines/Catheters IV Catheter Type: Gonzales in Place: No Assessment/Plan Hospital Course Subjective Patient feeling much better, Objective Physical exam General: Patient is laying in bed and answers questions appropriately Mentation: Patient is alert and oriented 4, Head: Normocephalic atraumatic Eyes: EOMI, pupils reactive to light Neck: Supple, nontender, midline Respiratory: Clear to auscultation bilaterally Cardiovascular: regular rate, no obvious murmurs Gastrointestinal: non-tender to palpation, bowel sounds heard. Neurological: Moves all extremities spontaneously Skin: No new skin lesions Assessment and plan Diabetic ketoacidosis -Out of DKA, will transition to Lantus and insulin regimen, endocrinology recommendations appreciated -Endocrinology has been consulted as patient will likely need an insulin plan to go back to [place]. Nausea vomiting -Secondary to above, resolved Electrolyte derangement -Secondary to above DKA, resolving Acute kidney injury versus renal failure -Likely secondary to volume depletion, nephrology has been consulted, Dr. Chandler -We will need to monitor Hypertension -Resume home meds when blood pressure stable Disposition -Monitor overnight to ensure renal function improvement, patient states that she has CKD but does not know her baseline creatinine. NEAL AZAR Nov 03, 2018 12:48
--- NOTE | 2018-11-03 14:04 | DS ---
Date/Time of Note Date/Time of Note DATE: 11/03/18 TIME: 14:04 Discharge Summary Admission/Discharge Info Admit Date/Time Nov 02, 2018 at 17:54 Discharge Date/Time Patient Condition: Critical Hospital Course Despite patient's renal function and need for stay, patient decided to sign out AGAINST MEDICAL ADVICE, patient is alert and oriented. Patient was explained all the risks of signing out AGAINST MEDICAL ADVICE which include debility and . Patient accepts all risks and responsibility and still signed out AGAINST MEDICAL ADVICE. Home Meds Reported Medications Hydrochlorothiazide* (Hydrochlorothiazide*) 25 Mg Tab, 25 MG PO DAILY, #30 TAB 11/02/18 Lisinopril* (Lisinopril*) 40 Mg Tablet, 40 MG PO DAILY, #30 TAB 11/02/18 Insulin Lispro (Humalog) 100 Unit/1 Ml Cartridge, 0-20 UNIT SQ AC B, EA 11/02/18 Rosuvastatin Calcium* (Crestor*) 20 Mg Tablet, 20 MG PO QHS, #30 TAB 11/02/18 Primary Care Provider Care Physician No Primary Pending Labs Laboratory Tests Test 11/02/18 15:17 11/02/18 15:42 11/02/18 17:17 11/02/18 18:00 Bedside > 595 > 595 Glucose mg/dL (70-220) mg/dL (70-220) White Blood 12.7 Count 10^3/ul (4.8-1 0.8) Red Blood 3.37 Count 10^6/ul (4.20- 5.40) Hemoglobin 9.2 g/dl (12.0-16. 0) Hematocrit 29.7 % (37.0-47.0) Mean 88.1 Corpuscular fl (82.0-101.0 Volume ) Mean 27.3 Corpuscular pg (29.0-33.0) Hemoglobin Mean 31.0 Corpuscular g/dl (32.0-37. Hemoglobin Conc 0) ent Red Cell 13.2 Distribution % (11.5-14.5) Width Platelet Count 422 10^3/UL (140-4 15) Mean Platelet 10.9 Volume fl (7.4-10.4) Immature 0.600 Granulocytes % % (0.001-0.429 ) Neutrophils % 92.8 % (39.0-77.0) Lymphocytes % 4.2 % (15.0-51.0) Monocytes % 2.2 % (0.0-11.0) Eosinophils % 0.0 % (0.0-7.0) Basophils % 0.2 % (0.0-2.0) Nucleated Red 0.0 Blood Cells % /100WBC (0.0-0 .0) Immature 0.070 Granulocytes # 10^3/ul (0.0-0 .031) Neutrophils # 11.8 10^3/ul (1.6-7 .5) Lymphocytes # 0.5 10^3/ul (0.8-2 .9) Monocytes # 0.3 10^3/ul (0.3-0 .9) Eosinophils # 0.0 10^3/ul (0.0-0 .5) Basophils # 0.0 10^3/ul (0.0-0 .1) Nucleated Red 0.0 Blood Cells # 10^3/ul (0.0-0 .0) Sodium Level 126 mmol/L (135-14 4) Potassium 6.4 Level mmol/L (3.5-5. 1) Chloride Level 94 mmol/L (97-110 ) Carbon Dioxide 12 Level mmol/L (21-31) Anion Gap 20 (5-13) Blood Urea 45 Nitrogen mg/dl (7-20) Creatinine 2.57 mg/dl (0.44-1. 00) Est Glomerular 22 Filtrat mL/min (>60) Rate mL/min Glucose Level 873 mg/dl (70-220) Hemoglobin A1c 8.9 % (0-5.9) Calcium Level 8.9 mg/dl (8.4-10. 2) Phosphorus 6.9 Level mg/dl (2.5-4.9 ) Magnesium 2.2 Level mg/dl (1.7-2.5 ) Blood Gas Blood venous Specimen Source Arterial Blood 11/02/2018 3:50: Date Drawn 19 PM Arterial Blood OTHER Gas Puncture Site Yohan Test N/A Venous Blood 7.234 (7.330-7 pH .430) Venous Blood 29.2 pCO2 mmHG (35-45) (Temp Corrected ) Venous Blood 42.6 pO2 mmHG (25.0-30. (Temp Corrected 0) ) Venous Blood 12.1 HCO3 mmol/L (22.0-2 9.0) Venous Blood 68.3 Oxygen mmHG (55.0-75. Saturation 0) Venous Blood -14.1 Base Excess mmol/L (-5.0-5 .0) Venous Blood 8.9 g/dl Total Hemoglobin Venous Blood 67.9 % Oxyhemoglobin Venous Blood 0.3 % Methemoglobin Blood Gas A-a 72.2 mmHg O2 Differential Carboxyhemoglob 0.3 % in Blood Gas 37.0 C Temperature Blood Gas ROOM AIR Modality FiO2 21.0 % Blood Gas RBASA R.N. Critical Value Read Back Blood Gas [facility] Notified Whom Blood Gas 11/02/2018 3:54: Notified Time 03 PM Test 11/02/18 18:03 11/02/18 18:33 11/02/18 18:59 11/02/18 19:24 Bedside > 595 > 595 Glucose mg/dL (70-220) mg/dL (70-220) Blood Gas Blood venous Specimen Source Arterial Blood 11/02/2018 5:43: Date Drawn 40 PM Arterial Blood OTHER Gas Puncture Site Yohan Test N/A Venous Blood 7.194 (7.330-7 pH .430) Venous Blood 28.0 pCO2 mmHG (35-45) (Temp Corrected ) Venous Blood 61.4 pO2 mmHG (25.0-30. (Temp Corrected 0) ) Venous Blood 10.6 HCO3 mmol/L (22.0-2 9.0) Venous Blood 84.2 Oxygen mmHG (55.0-75. Saturation 0) Venous Blood -16.2 Base Excess mmol/L (-5.0-5 .0) Venous Blood 9.7 g/dl Total Hemoglobin Venous Blood 83.6 % Oxyhemoglobin Venous Blood 0.3 % Methemoglobin Blood Gas A-a 54.8 mmHg O2 Differential Carboxyhemoglob 0.4 % in Blood Gas 37.0 C Temperature Blood Gas ROOM AIR Modality FiO2 21.0 % Blood Gas BERNIE R.N. Critical Value Read Back Blood Gas [facility] Notified Whom Blood Gas 11/02/2018 5:47: Notified Time 35 PM Sodium Level 134 mmol/L (135-14 4) Potassium 4.4 Level mmol/L (3.5-5. 1) Chloride Level 105 mmol/L (97-110 ) Carbon Dioxide 7 Level mmol/L (21-31) Anion Gap 22 (5-13) Blood Urea 46 Nitrogen mg/dl (7-20) Creatinine 2.72 mg/dl (0.44-1. 00) Est Glomerular 25 Filtrat mL/min (>60) Rate mL/min Glucose Level 713 mg/dl (70-220) Calcium Level 8.9 mg/dl (8.4-10. 2) Phosphorus 7.4 Level mg/dl (2.5-4.9 ) Magnesium 2.2 Level mg/dl (1.7-2.5 ) Test 11/02/18 20:00 11/02/18 21:02 11/02/18 22:03 11/02/18 22:55 Bedside > 595 566 526 Glucose mg/dL (70-220) mg/dL (70-220) mg/dL (70-220) Sodium Level 135 mmol/L (135-14 4) Potassium 4.5 Level mmol/L (3.5-5. 1) Chloride Level 103 mmol/L (97-110 ) Carbon Dioxide 9 Level mmol/L (21-31) Anion Gap 23 (5-13) Blood Urea 45 Nitrogen mg/dl (7-20) Creatinine 3.32 mg/dl (0.44-1. 00) Est Glomerular 20 Filtrat mL/min (>60) Rate mL/min Glucose Level 508 mg/dl (70-220) Calcium Level 8.9 mg/dl (8.4-10. 2) Phosphorus 7.2 Level mg/dl (2.5-4.9 ) Magnesium 2.0 Level mg/dl (1.7-2.5 ) Test 11/02/18 23:02 11/02/18 23:59 11/03/18 00:58 11/03/18 01:08 Bedside 492 441 446 Glucose mg/dL (70-220) mg/dL (70-220) mg/dL (70-220) Sodium Level 136 mmol/L (135-14 4) Potassium 4.6 Level mmol/L (3.5-5. 1) Chloride Level 108 mmol/L (97-110 ) Carbon Dioxide 13 Level mmol/L (21-31) Anion Gap 15 (5-13) Blood Urea 49 Nitrogen mg/dl (7-20) Creatinine 3.06 mg/dl (0.44-1. 00) Est Glomerular 22 Filtrat mL/min (>60) Rate mL/min Glucose Level 406 mg/dl (70-220) Calcium Level 8.8 mg/dl (8.4-10. 2) Phosphorus 4.7 Level mg/dl (2.5-4.9 ) Magnesium 1.9 Level mg/dl (1.7-2.5 ) Test 11/03/18 02:03 11/03/18 03:05 11/03/18 04:07 11/03/18 04:33 Bedside 397 320 209 Glucose mg/dL (70-220) mg/dL (70-220) mg/dL (70-220) Blood Gas Blood venous Specimen Source Arterial Blood 11/03/2018 5:02: Date Drawn 36 AM Arterial Blood VENOUS LINE Gas Puncture Site Yohan Test N/A Venous Blood 7.321 (7.330-7 pH .430) Venous Blood 32.2 pCO2 mmHG (35-45) (Temp Corrected ) Venous Blood 41.4 pO2 mmHG (25.0-30. (Temp Corrected 0) ) Venous Blood 16.3 HCO3 mmol/L (22.0-2 9.0) Venous Blood 75.2 Oxygen mmHG (55.0-75. Saturation 0) Venous Blood -8.7 Base Excess mmol/L (-5.0-5 .0) Venous Blood 11.9 g/dl Total Hemoglobin Venous Blood 74.7 % Oxyhemoglobin Venous Blood 0.3 % Methemoglobin Carboxyhemoglob 0.3 % in Blood Gas 37.0 C Temperature Blood Gas ROOM AIR Modality FiO2 21.0 % Blood Gas RTR Notified Whom Blood Gas 11/03/2018 5:20: Notified Time 36 AM Test 11/03/18 04:53 11/03/18 06:14 11/03/18 06:46 11/03/18 08:42 Sodium Level 138 mmol/L (135-144 ) Potassium 4.4 Level mmol/L (3.5-5.1 ) Chloride Level 109 mmol/L (97-110) Carbon Dioxide 18 Level mmol/L (21-31) Anion Gap 11 (5-13) Blood Urea 48 mg/dl (7-20) Nitrogen Creatinine 2.85 mg/dl (0.44-1.0 0) Est Glomerular 24 mL/min (>60) Filtrat Rate mL/min Glucose Level 179 mg/dl (70-220) Bedside 212 170 137 99 Glucose mg/dL (70-220) mg/dL (70-220) mg/dL (70-220) mg/dL (70-220) Calcium Level 8.9 mg/dl (8.4-10.2 ) Phosphorus 3.2 Level mg/dl (2.5-4.9) Magnesium 1.9 Level mg/dl (1.7-2.5) Test 11/03/18 10:13 11/03/18 11:00 11/03/18 12:00 Bedside 110 173 106 Glucose mg/dL (70-220) mg/dL (70-220) mg/dL (70-220) NEAL AZAR Nov 03, 2018 14:04
== END 2018-11-03 14:10 | disposition home or self-care (01) | DRG 637 ==
LOC: E/R 15:12 → ICU 17:54
PROVIDERS: ADMIT Internal Medicine; ATTEND Internal Medicine
DX: E10.10 Type 1 diabetes mellitus with ketoacidosis without coma (principal); N17.0 Acute kidney failure with tubular necrosis; E87.1 Hypo-osmolality and hyponatremia; I10 Essential (primary) hypertension; E86.1 Hypovolemia; Z79.4 Long term (current) use of insulin; Z96.41 Presence of insulin pump (external) (internal); E10.21 Type 1 diabetes mellitus with diabetic nephropathy; E78.5 Hyperlipidemia, unspecified
CPT/HCPCS: 36415; 71045; 80048; 82803; 82962; 83036; 83735; 84100; 85025; 94664; 96361; 96365; 96375; J0131; J1815; J2060; J2405; J7030; J7070